=== PATIENT | female | born 1990 | race Caucasian/White ===

== ENCOUNTER 2017-08-17 23:57 | Inpatient (IN) ==
[~2017-08-17 23:57] MED LIST: BUTORPHANOL TARTRATE 2 MG/ML VIAL IV PRN; LIDOCAINE HCL 50 ML VIAL PERI PRN; ONDANSETRON HCL/PF 2 MG/ML VIAL IV PRN
[2017-08-18] MEDS ORDERED: OXYTOCIN/DEXTROSE 5%-WATER 30 UNITS/500 ML BAG IV ONE ×2 (00:01→14:39)
[2017-08-18 00:44] LABS: Hematocrit 30.8 % (37.0-47.0); Hemoglobin 10.3 gm/dL (12.5-16.0); Mean Cell Volume 89.5 fl (78-100); Mean Corpuscular Hemoglobin 29.9 pg (27-31); Mean Corpuscular Hgb Conc 33.4 g/dl (32-36); Neutrophil # 7.6 K/mm3 (1.3-6.0); Neutrophil % 70.7 % (42-75.0); Platelet Count 211 K/mm3 (150-450); Red Blood Count 3.44 M/mm3 (4.2-5.4); Red Cell Distribution Width 13.6 % (11.5-14.0); White Blood Count 10.7 K/mm3 (4.0-10.5)
[2017-08-18] MEDS: MISOPROSTOL 100 MCG TABLET VG PRN ×2 (01:08→06:35)
[2017-08-18] MEDS: RINGER'S SOLUTION,LACTATED 1,000 ML IV PRN ×2 (08:20→09:29)
[2017-08-18] MEDS ORDERED: ONDANSETRON HCL/PF 2 MG/ML VIAL IV PRN (08:37)
[2017-08-18] MEDS ORDERED: BUPIVACAINE HCL/0.9 % NACL/PF 250 ML EP PRN ×3 (08:37→09:22)
[2017-08-18] MEDS ORDERED: NALOXONE HCL 1 MG/1 ML SYRG IV PRN (08:37)
[2017-08-18] MEDS ORDERED: fentaNYL CITRATE/PF 50 MCG/ML AMPUL IT SCH (08:45)
--- NOTE | 2017-08-18 08:48 | PN ---
Subjective - Date and Time Seen Date: 08/18/17 Subjective Narrative: labor note 27 yo, CF, at 39.2 w, elective induction. GBS negative. cytotec for cervical ripening. cervix 1 cm/75/-2 at admission. first dose at 1:08 am. second dose at 3:30 am. patient appeared in a lot of pain. Contraction every 2-3 min. FHR: reassuring, 130s with accels and occasional variable (using the wireless monitoring system, Novii at this time). bedside u/s: cephalic Todd bulb inserted, easy to get into the cervix, but not easy to get through, patient is very uncomfortable, so Todd catheter removed. Plan: will get epidural. expectant and monitoring for now. Paola Kwon MD Objective - Abnormal Lab Findings Abnormal Lab Findings: Abnormal Lab Results 08/18/17 Range/Units 00:40 WBC 10.7 H (4.0-10.5) K/mm3 RBC 3.44 L (4.2-5.4) M/mm3 Hgb 10.3 L (12.5-16.0) gm/dL Hct 30.8 L (37.0-47.0) % MPV 11.0 H (6.0-9.5) fl Immature Gran % (Auto) 0.60 H (0.001-0.429) % Immature Gran # (Auto) 0.06 H (0.000-0.0310) K/mm3 Neutrophils # 7.6 H (1.3-6.0) K/mm3
[2017-08-18] MEDS ORDERED: BUPIVACAINE HCL/PF 30 ML VIAL EP SCH ×2 (09:15→09:30)
--- NOTE | 2017-08-18 09:52 | OR ---
Anesthesia Procedure Note - Anesthesia Procedure Note Date of Service: 08/18/17 Narrative: 08/18/17 09:51 ANESTHESIA PROCEDURE NOTE Date of Procedure: 08/17/2017. Time of procedure: 929. Performed by: Mann Mckeon CRNA Beer Merchant: None. Preprocedure diagnosis: Active labor. Post procedure diagnosis: Same. Procedure: Insertion of labor epidural. Indications: The patient is a 27 -year-old female in active labor requesting labor epidural for pain management. Findings: See below. Details of the procedure: The patient was placed in a sitting position. DuraPrep as well as Betadine swabs X3 was applied to the patient's back. Patient was then draped in a sterile fashion. Lidocaine 1% was infiltrated to the skin and subcutaneous tissues at the level of the L3-4 interspace. The epidural space was identified using a 18-gauge Tuohy needle with loss-of- resistance technique. Epidural catheter was inserted to a depth of 12 centimeters at skin. Negative test dose was elicited using 3 mL of 1.5% preservative-free lidocaine plus epinephrine 1 200,000. The epidural catheter was then taped and secured in place. A loading dose of 8 mL of 0.25% preservative-free bupivacaine was administered to the epidural catheter after negative aspiration for blood and CSF. EBL: Minimal. Fluids: N/A. Specimen: N/A. Post procedure condition: The patient tolerated the procedure well. No complications were noted. Thank you for this consultation. Mann Mckeon CRNA
[2017-08-18] MEDS ORDERED: BENZOCAINE/MENTHOL 81 SPRAY CAN TP PRN (14:39)
[2017-08-18] MEDS ORDERED: HYDROCORTISONE 30 APPL TUBE TP PRN (14:39)
[2017-08-18] MEDS ORDERED: SENNOSIDES 8.6 MG TABLET PO PRN (14:39)
[2017-08-18] MEDS ORDERED: BISACODYL 10 MG SUPP.RECT RC PRN (14:39)
[2017-08-18] MEDS ORDERED: diphenhydrAMINE HCL 25 MG CAPSULE PO PRN (14:39)
[2017-08-18] MEDS ORDERED: GLYCERIN/WITCH HAZEL LEAF 40 APPL BOX TP PRN (14:39)
[2017-08-18] MEDS ORDERED: HYDROcodone/ACETAMINOPHEN 1 EACH TABLET PO PRN (14:39)
--- NOTE | 2017-08-18 14:39 | OR ---
Operative Report - Dictated Report Narrative: Spontaneous Vaginal Delivery Note: 27 yo, CF, at 39.2 weeks, admitted for elective induction, dilated to 1 cm, 75% and -2 at admission. GBS was negative. Received Cytotec per vagina x 2 doses and augmented with pitocin. Received epidural for pain. SROM prior to delivery, time of SROM unknown. Progressed to complete without complications. Perineum cleaned with betadine. Pushed with contractions and descent. Head delivered in TRUMAN over the perineum. No nuchal cord noted. The anterior shoulder delivered, followed by the posterior shoulder and the rest of the baby without difficulty. Baby cried at perineum. Baby placed on maternal abdomen for drying and care by the nursing. Cord was clamped at one minute of life and cut by the father of baby. Cord blood was obtained. Placenta delivered intact with 3 vessel cord. Pitocin drip started after placenta delivered. Exam of the perineum, vaginal and cervix revealed small bilateral periurethral tears only. No repair needed. Fundus was massaged and firm. Bleeding was small. Mother and baby tolerated the delivery well. EBL 150 ml. Infant: male, 3580grams, 7 lbs and 14.2 oz. 9/9. Time of delivery: 14:15. Paola Kwon MD History for Definition: * The number of deliveries resulting in a live the patient experienced prior to current hospitalization * The previous delivery of live twins or any live multiple gestation is considered one live event. *If primagravida or nulliparous is documented select zero for the number of previous live births. Live Events: 1
[2017-08-18] MEDS: IBUPROFEN 800 MG TABLET PO PRN ×2 (17:38→23:45)
[2017-08-18] MEDS: DOCUSATE SODIUM 100 MG CAPSULE PO SCH (21:57)
[2017-08-19] MEDS: DOCUSATE SODIUM 100 MG CAPSULE PO SCH ×3 (07:29→20:46)
[2017-08-19] MEDS: IBUPROFEN 800 MG TABLET PO PRN ×3 (07:29→19:06)
--- NOTE | 2017-08-19 17:31 | PN ---
Subjective - Date and Time Seen Date: 08/19/17 Subjective Narrative: day 1, s/p vaginal delivery. no complaints. . normal lochia. ambulating well. Objective - Vitals Vitals: Last Vital Signs Temp 36.4 C L 08/19/17 08:21 Pulse 80 08/19/17 13:00 Resp 16 08/19/17 13:00 BP 128/78 08/19/17 13:00 Pulse Ox 98 08/19/17 13:00 - Exam Constitutional: Present: Alert, Oriented x3, Cooperative Respiratory: Present: no respiratory distress Cardiovascular/Chest: Present: normal peripheral pulses Abdomen: Present: soft, nontender, nondistended, other - fundus firm, non-tender , 1 finger below umbilicus Extremity: Present: normal range of motion, no pedal edema, no calf tenderness Skin Exam: Present: normal color, warm/dry, no cyanosis Appearance: Present: appropriate appearance Eye contact: Present: cooperative, good eye contact, normal speech Cauti Physician Documentation - Urinary Catheter Management Urethral (Todd) Date of Insertion: 08/18/17 Time of Insertion: 09:55 Assessment/Plan Plan Narrative: A: day 1, s/p , stable and well. Plan: routine care. ambulation encouraged. Paola Kwon MD
[2017-08-20] MEDS: IBUPROFEN 800 MG TABLET PO PRN ×2 (01:18→08:07)
[2017-08-20] MEDS: DOCUSATE SODIUM 100 MG CAPSULE PO SCH (08:07)
[2017-08-20 09:53] VITALS: BP 135/86
--- NOTE | 2017-08-20 14:33 | PN ---
Subjective - Date and Time Seen Date: 08/20/17 Subjective Narrative: day 2, s/p doing well. noted some leg swelling. no headache or blurry vision. BP normal. well. small lochia. Objective - Vitals Vitals: Last Vital Signs Temp 36.4 C L 08/20/17 08:00 Pulse 75 08/20/17 08:00 Resp 20 08/20/17 08:00 BP 135/86 08/20/17 08:00 Pulse Ox 98 08/20/17 08:00 - Exam Constitutional: Present: Alert, Oriented x3, Cooperative Respiratory: Present: no respiratory distress Cardiovascular/Chest: Present: normal peripheral pulses Abdomen: Present: soft, nontender, nondistended, other - fundus firm and below unbilicus Extremity: Present: normal range of motion, no calf tenderness, lower extremity edema - 1+ bilaterally, pedal edema - trace Skin Exam: Present: normal color, warm/dry, no cyanosis Appearance: Present: appropriate appearance Eye contact: Present: cooperative, good eye contact, normal speech Cauti Physician Documentation - Urinary Catheter Management Urethral (Todd) Date of Insertion: 08/18/17 Time of Insertion: 09:55 Assessment/Plan Plan Narrative: A: PPD#2, s/p , stable with mild low extremity edema. Plan: preeclampsia precautions given. counseled ambulation and leg elevation. discharge home today. Paola Kwon MD
== END 2017-08-20 13:00 | disposition home or self-care (01) | DRG 775 ==
LOC: OB 23:57
PROVIDERS: ADMIT Obstetrics & Gynecology; ATTEND Obstetrics & Gynecology
DX: Z37.0 Single live birth; O80 Encounter for full-term uncomplicated delivery; Z3A.39 39 weeks gestation of pregnancy
CPT/HCPCS: 36415; 59025; 85025; 86850; 86900; J2405

== ENCOUNTER 2018-09-09 11:34 | Inpatient (IN) ==
[2018-09-09] MEDS ORDERED: METOCLOPRAMIDE HCL 5 MG/ML VIAL IV ONE (12:14)
[2018-09-09] MEDS ORDERED: ONDANSETRON HCL/PF 2 MG/ML VIAL IV PRN ×2 (12:28→14:30)
[2018-09-09] MEDS ORDERED: DEXTROSE 5%-LACTATED RINGERS 1,000 ML IV PRN (12:28)
[2018-09-09 12:51] LABS: Hematocrit 31.5 % (37.0-47.0); Hemoglobin 10.2 gm/dL (12.5-16.0); Mean Cell Volume 88.2 fl (78-100); Mean Corpuscular Hemoglobin 28.6 pg (27-31); Mean Corpuscular Hgb Conc 32.4 g/dl (32-36); Mean Platelet Volume 11.1 fl (8-12.5); Neutrophil # 6.1 K/mm3 (1.3-6.0); Neutrophil % 74.1 % (42-75.0); Platelet Count 220 K/mm3 (150-450); Red Blood Count 3.57 M/mm3 (4.2-5.4); Red Cell Distribution Width 13.2 % (11.5-14.0); White Blood Count 8.2 K/mm3 (4.0-10.5)
[2018-09-09] MEDS: METOCLOPRAMIDE HCL 5 MG/ML VIAL IV PRN ×2 (12:52→13:11)
[2018-09-09 12:55] LABS: Albumin * 2.3 gm/dl (3.4-5.0); Anion Gap 14.5 mmol/L (6.8-13.8); BUN/Creatinine Ratio 7.8 (9.0-21.6); Bilirubin, Total 0.3 mg/dL (0.0-1.1); Ca. Corrected For Albumin 9.5 mg/dL (8.4-10.2); Calcium * 8.5 mg/dL (7.9-10.9); Carbon Dioxide 23.2 mmol/L (24-32.6); Potassium 3.7 mmol/L (3.4-4.6); Total Protein 6.1 gm/dL (6.2-8.2)
[2018-09-09 12:56] LABS: Random Urine Total Protein 19.1 mg/dL (0-12)
[2018-09-09 13:00] LABS: Cocaine Ur Negative (NEGATIVE); Urine Barbiturate Negative (NEGATIVE); Urine Benzodiazepines Negative (NEGATIVE); Urine Opiates Negative (NEGATIVE); Urine PCP Negative (NEGATIVE); Urine THC Negative (NEGATIVE)
[2018-09-09] MEDS ORDERED: diphenhydrAMINE HCL 50 MG/ML VIAL IV ONE (13:00)
[2018-09-09] MEDS ORDERED: OXYTOCIN/DEXTROSE 5%-WATER 30 UNITS/500 ML BAG IV ONE ×2 (13:48→18:35)
[2018-09-09] MEDS ORDERED: RINGER'S SOLUTION,LACTATED 1,000 ML IV PRN (13:48)
[2018-09-09] MEDS ORDERED: RINGER'S SOLUTION,LACTATED 1,000 ML IV ONE (13:48)
--- NOTE | 2018-09-09 13:52 | HP ---
Chief Complaint - Chief Complaint Date of Service: 09/09/18 Time of Service: 13:50 Chief Complaint: LEÓN and elevated BPs History of Present Illness: 28 yo at 38 2/7 wks presents to L&D complaining of LEÓN unrelieved with tylenol and rest and elevated BPs at home. She denies visual changes or epigastric pain. This complicated by anemia, short interval between pregnancies, h/o LEEP, h/o GHTN. Rh positive Rubella immune GBS negative. Medical History (Updated 09/09/18 @ 13:52 by Daniel Nicolas DO) Constipation Onset Date: ~2014 Endometriosis Onset Date: Unknown [place] teeth extracted Abnormal Pap smear of cervix Onset Date: ~2012; had colpo and LEEP, unsure of dx Acute non-recurrent frontal sinusitis Onset Date: ~03/06/17 Cholesteatoma Onset Date: Unknown age 10 5th grade Gestational hypertension Onset Date: Unknown Impacted cerumen of left ear Onset Date: ~03/06/17 Otitis media Onset Date: Unknown Ovarian cyst Onset Date: Unknown Surgical History: Surgical History (Updated 09/09/18 @ 13:52 by Daniel Nicolas DO) Hx of tonsillectomy H/O dilation and curettage Onset Date: ~2011 [facility] H/O myringoplasty History of appendectomy Onset Date: ~2010 History of colposcopy Onset Date: ~2012 History of ear surgery Onset Date: Unknown 5th grade left ear leetz/leep Onset Date: ~2012 Family History: Family History (Updated 01/20/18 @ 14:02 by Sienna Lainez RN) Mother Alive and well Father Diabetes Hypertension Social History: Preferred Language Czech Smoking Status Never smoker (Last Updated 09/08/18 @ 15:32 by Paola Kwon MD) No Social History Section defined Review Of Systems (GEN) - Review of Systems Generalized/Overall Review: Present: No Symptoms Reported EENTM: Present: No Symptoms Reported Respiratory: Present: No Symptoms Reported Cardiac: Present: No Symptoms Reported Abdominal: Present: Abdominal Pain - cramping Genitourinary: Present: No Symptoms Reported Musculoskeletal: Present: No Symptoms Reported Neurological: Present: Headache Skin: Present: No Symptoms Reported Endocrine: Present: No Symptoms Reported Immunizations: IMMUNIZATION HX Immunizations Up to Date Yes Allergies/Adverse Reactions: Allergies Allergy/AdvReac Type Severity Reaction Status Date / Time No Known Allergies Allergy Verified 09/09/18 12:07 Home Medications: HOME MEDICATIONS Vits96/Iron Fum/Folic [ S] 1 tab PO DAILY 08/18/17 [Last Taken 09/07/18 06:00] Acetaminophen [Tylenol] 1,000 mg PO PRN PRN 09/07/18 [Last Taken 09/09/18 10:00] Exam - Exam Vital Signs: Vital Signs - Last Taken Temp 36.2 C 09/09/18 12:05 Pulse 98 09/09/18 12:40 Resp 20 09/09/18 12:40 BP 126/79 09/09/18 12:40 Pulse Ox 96 09/09/18 12:05 Constitutional: Present: Alert, Oriented x3, Cooperative, Mild distress ENT Exam: Present: hearing grossly normal Breasts: Present: Exam deferred Respiratory: Present: lungs clear, no respiratory distress Cardiovascular/Chest: Present: normal peripheral pulses, regular rate, rhythm, no edema Abdomen: Present: soft, nontender, no rebound tenderness, other - gravid. Absent: guarding /Rectal: Present: Other - 5-6/90/-2 Extremity: Present: no pedal edema, no calf tenderness Neurologic: Present: alert, normal mood/affect, oriented x 3, other - DTR 2/4 b/l LE, no clonus Appearance: Present: appropriate appearance, appropriate insight Eye contact: Present: cooperative, good eye contact Thoughts: Present: normal thought pattern Diagnostic Studies: Abnormal Lab Results 09/09/18 09/09/18 09/09/18 Range/Units 12:30 12:30 12:30 RBC 3.57 L (4.2-5.4) M/mm3 Hgb 10.2 L (12.5-16.0) gm/dL Hct 31.5 L (37.0-47.0) % Immature Gran % (Auto) 0.60 H (0.001-0.429) % Immature Gran # (Auto) 0.05 H (0.000-0.0310) K/mm3 Lymphocytes % 14.7 L (20-51) % Neutrophils # 6.1 H (1.3-6.0) K/mm3 Lymphocytes # 1.20 L (1.5-3.5) k/mm3 Chloride 107 H (97-106) mmol/L Carbon Dioxide 23.2 L (24-32.6) mmol/L Anion Gap 14.5 H (6.8-13.8) mmol/L BUN/Creatinine Ratio 7.8 L (9.0-21.6) ALT 16 L (19-67) U/L Total Protein 6.1 L (6.2-8.2) gm/dL Albumin 2.3 L (3.4-5.0) gm/dl U Random Total Protein 19.1 H (0-12) mg/dL Laboratory Results WBC 8.2 K/mm3 (4.0-10.5) 09/09/18 12:30 RBC 3.57 M/mm3 (4.2-5.4) L 09/09/18 12:30 Hgb 10.2 gm/dL (12.5-16.0) L 09/09/18 12:30 Hct 31.5 % (37.0-47.0) L 09/09/18 12:30 MCV 88.2 fl (78-100) 09/09/18 12:30 MCH 28.6 pg (27-31) 09/09/18 12:30 MCHC 32.4 g/dl (32-36) 09/09/18 12:30 RDW 13.2 % (11.5-14.0) 09/09/18 12:30 Plt Count 220 K/mm3 (150-450) 09/09/18 12:30 MPV 11.1 fl (8-12.5) 09/09/18 12:30 Immature Gran % (Auto) 0.60 % (0.001-0.429) H 09/09/18 12:30 Immature Gran # (Auto) 0.05 K/mm3 (0.000-0.0310) H 09/09/18 12:30 74.1 % (42-75.0) 09/09/18 12:30 14.7 % (20-51) L 09/09/18 12:30 8.7 % (0.0-9) 09/09/18 12:30 1.7 % (0.0-3.0) 09/09/18 12:30 0.2 % (0.0-1.0) 09/09/18 12:30 Nucleated RBC % 0.0 k/mm3 (0-1) 09/09/18 12:30 6.1 K/mm3 (1.3-6.0) H 09/09/18 12:30 1.20 k/mm3 (1.5-3.5) L 09/09/18 12:30 0.7 k/mm3 (0.0-1.0) 09/09/18 12:30 0.1 k/mm3 (0.0-0.7) 09/09/18 12:30 Absolute Basophils 0.0 k/mm3 (0.0-0.1) 09/09/18 12:30 Sodium 141 mmol/L (132-142) 09/09/18 12:30 141 mmol/L (130-142) 09/09/18 12:30 Potassium 3.7 mmol/L (3.4-4.6) 09/09/18 12:30 Chloride 107 mmol/L (97-106) H 09/09/18 12:30 Carbon Dioxide 23.2 mmol/L (24-32.6) L 09/09/18 12:30 14.5 mmol/L (6.8-13.8) H 09/09/18 12:30 BUN 6 mg/dL (3-23) 09/09/18 12:30 0.77 mg/dL (0.4-1.4) 09/09/18 12:30 Est GFR (Non-Af Amer) 94 mL/min (60-130) 09/09/18 12:30 7.8 (9.0-21.6) L 09/09/18 12:30 106 mg/dL (70-110) 09/09/18 12:30 Calcium 8.5 mg/dL (7.9-10.9) 09/09/18 12:30 Calcium Adj for Albumin 9.5 mg/dL (8.4-10.2) 09/09/18 12:30 0.3 mg/dL (0.0-1.1) 09/09/18 12:30 AST 18 U/L (0-48) 09/09/18 12:30 ALT 16 U/L (19-67) L 09/09/18 12:30 160 U/L (50-170) 09/09/18 12:30 6.1 gm/dL (6.2-8.2) L 09/09/18 12:30 2.3 gm/dl (3.4-5.0) L 09/09/18 12:30 Ur Random Creatinine 128.5 mg/dL (60-200) 09/09/18 12:30 U Random Total Protein 19.1 mg/dL (0-12) H 09/09/18 12:30 U [place] Prot/Creat Ratio 149 mg/gm (0-199) 09/09/18 12:30 Negative (NEGATIVE) 09/09/18 12:30 Negative (NEGATIVE) 09/09/18 12:30 Ur Phencyclidine Scrn Negative (NEGATIVE) 09/09/18 12:30 Urine Amphetamine Negative (NEGATIVE) 09/09/18 12:30 U Benzodiazepines Scrn Negative (NEGATIVE) 09/09/18 12:30 Negative (NEGATIVE) 09/09/18 12:30 Negative (NEGATIVE) 09/09/18 12:30 Assessment/Plan - Assessment/Plan (1) Labor established Assessment: Admit for routine management of labor. Epidural PRN. Problem: Acute (2) Headache Assessment: Resolved with one dose of Benadryl and 2 doses of Reglan. Problem: Resolved Qualifiers: Headache chronicity pattern: acute headache Intractability: intractable (3) History of gestational hypertension Problem: Chronic (4) History of loop electrical excision procedure (LEEP) Problem: Chronic
[2018-09-09] MEDS ORDERED: fentaNYL CITRATE/PF 50 MCG/ML AMPUL IT SCH (14:30)
[2018-09-09] MEDS ORDERED: BUPIVACAINE HCL/0.9 % NACL/PF 250 ML EP PRN (14:30)
[2018-09-09] MEDS ORDERED: NALOXONE HCL 1 MG/1 ML SYRG IV PRN (14:30)
[2018-09-09] MEDS ORDERED: LIDOCAINE HCL/EPINEPHRINE 20 ML VIAL ONE (14:56)
--- NOTE | 2018-09-09 15:13 | PN ---
Progess Note - Interim Date: 09/09/18 Time: 14:30 Narrative: 09/09/18 15:11 Patient desires epidural Vital signs stable. FHT:150 baseline, reassuring Contractions q 2-4 min Cervix: 8/90/-1 AROM-scant blood tinged Impression: Intrauterine at 38-2/7 weeks in labor Plan: Epidural requested
--- NOTE | 2018-09-09 15:28 | ANES ---
Anesthesia Pre Procedure Eval Vitals/Labs: Last Vital Signs Temp 36.2 C 09/09/18 12:05 Pulse 98 09/09/18 12:40 Resp 20 09/09/18 12:40 BP 126/79 09/09/18 12:40 Pulse Ox 96 09/09/18 12:05 HOME MEDICATIONS RX: Vits96/Iron Fum/Folic [ S] 1 tab PO DAILY 08/18/17 [Last Taken 09/07/18 06:00] Acetaminophen [Tylenol] 1,000 mg PO PRN PRN 09/07/18 [Last Taken 09/09/18 10:00] Allergies/Adverse Reactions: Allergies Allergy/AdvReac Type Severity Reaction Status Date / Time No Known Allergies Allergy Verified 09/09/18 12:07 - Planned Procedure Planned Procedure: HEADACHE, ELEVATED B/P Medication List Reviewed:: Yes Allergies Verified: Yes Medical History (Updated 09/09/18 @ 14:13 by Daniel Nicolas DO) Constipation Onset Date: ~2014 Endometriosis Onset Date: Unknown [place] teeth extracted Abnormal Pap smear of cervix Onset Date: ~2012; had colpo and LEEP, unsure of dx Acute non-recurrent frontal sinusitis Onset Date: ~03/06/17 Cholesteatoma Onset Date: Unknown age 10 5th grade Gestational hypertension Onset Date: Unknown Impacted cerumen of left ear Onset Date: ~03/06/17 Otitis media Onset Date: Unknown Ovarian cyst Onset Date: Unknown Surgical History (Updated 09/09/18 @ 14:13 by Daniel Nicolas DO) Hx of tonsillectomy H/O dilation and curettage Onset Date: ~2011 [place] H/O myringoplasty History of appendectomy Onset Date: ~2010 History of colposcopy Onset Date: ~2012 History of ear surgery Onset Date: Unknown 5th grade left ear leetz/leep Onset Date: ~2012 Family History (Updated 01/20/18 @ 14:02 by Sienna Lainez RN) Mother Alive and well Father Diabetes Hypertension - Family Anesthesia History Family History:: no untoward family reactions to anesthesia - Airway/Neck/Teeth Within Normal Limits:: Yes Teeth Condition: intact Neck Exam: full range of motion Mallampatti Score: 2 Thyromental (T-M) distance: > 6 cm Mandibulo Hyoid distance: > 3 cm - Respiratory Respiratory Physical: lungs clear Sleep Apnea currently treated: No Sleep Apnea by current assessment: No - Cardiovascular Tolerate Activity: Good Heart Sounds: S1 & S2, Regular - Anesthesia Assessment and Plan ASA Class: PS, II, E Anesthesia Type Plan: Epidural Planned difficult intubation/equipment available: No
--- NOTE | 2018-09-09 15:29 | ANES ---
Post Anesthesia Assessment - Vital Signs Vitals: Last Vital Signs Temp 36.2 C 09/09/18 12:05 Pulse 98 09/09/18 12:40 Resp 20 09/09/18 12:40 BP 126/79 09/09/18 12:40 Pulse Ox 96 09/09/18 12:05 Airway Patency: Normal - Mental Status Level Of Consciousness: Awake - Pain Level Pain Score: 2 - N/V Assessment Nausea/Vomiting Presence: None Dehydration:: No
--- NOTE | 2018-09-09 15:29 | ANES ---
Post Anesthesia Discharge - Transfer of Care Transfer of Care handoff given to nurse: Yes - Anesthesia Post Op Note Anesthesia Post Op Note: Care transferred to OB RN
--- NOTE | 2018-09-09 15:30 | ANES ---
Anesthesia Procedure Note Procedure Note: ANESTHESIA PROCEDURE NOTE Date of Procedure: 09/09/2018 Time of procedure: 1515. Performed by: Vin Baumann CRNA Field Counsel: None. Preprocedure diagnosis: Active labor. Post procedure diagnosis: Same. Procedure: Insertion of labor epidural. Indications: The patient is a 28-year-old multigravida female in active labor requesting labor epidural for pain management. Findings: See below. Details of the procedure: The patient was placed in a sitting position. Back was prepped with DuraPrep. Patient was then draped in a sterile fashion. Lidocaine 1% was infiltrated to the skin and subcutaneous tissues at the level of the L3 4 interspace. The epidural space was identified using a 18-gauge Tuohy needle with [id number] technique. 20 mcg fentanyl was given intrathecally using a 27 ga. spinal needle. Epidural catheter was inserted without difficulty. Negative test dose was elicited using 3 mL of 2% preservative-free lidocaine plus epinephrine 1 200,000. The epidural catheter was then taped and secured in place. EBL: Minimal. Fluids: N/A. Specimen: N/A. Post procedure condition: The patient tolerated the procedure well. No complications were noted. Thank you for this consultation. [place] CRNA
--- NOTE | 2018-09-09 18:33 | OR ---
Operative Report - Dictated Report Narrative: Spontaneous vaginal delivery of viable male at 1818 on 09/09/2018 with Apgars 9 and 9, weighing 3935 g and TRUMAN position. Infant crying on mother's abdomen. Cord clamping delayed approximately 1 minute Placenta delivered complete, intact, with three vessel cord Estimated blood loss: less than 50 ml Anesthesia: epidural Lacerations: None History for MU Definition: * The number of deliveries resulting in a live the patient experienced prior to current hospitalization * The previous delivery of live twins or any live multiple gestation is considered one live event. *If primagravida or nulliparous is documented select zero for the number of previous live births. Live Events: 2
[2018-09-09] MEDS ORDERED: BENZOCAINE/MENTHOL 81 SPRAY CAN TP PRN (18:35)
[2018-09-09] MEDS ORDERED: oxyCODONE HCL/ACETAMINOPHEN 1 TAB TABLET PO PRN (18:35)
[2018-09-09] MEDS ORDERED: SENNOSIDES 8.6 MG TABLET PO PRN (18:35)
[2018-09-09] MEDS ORDERED: HYDROCORTISONE 30 APPL TUBE TP PRN (18:35)
[2018-09-09] MEDS ORDERED: GLYCERIN/WITCH HAZEL LEAF 40 APPL BOX TP PRN (18:35)
[2018-09-09] MEDS ORDERED: BISACODYL 10 MG SUPP.RECT RC PRN (18:35)
[2018-09-09] MEDS: DOCUSATE SODIUM 100 MG CAPSULE PO SCH (20:50)
[2018-09-09] MEDS: IBUPROFEN 800 MG TABLET PO PRN (20:50)
[2018-09-09] MEDS: oxyCODONE HCL/ACETAMINOPHEN 1 TAB TABLET PO PRN (20:50)
[2018-09-10] MEDS: IBUPROFEN 800 MG TABLET PO PRN ×3 (04:18→20:53)
[2018-09-10] MEDS: PRENATAL VITS96/IRON FUM/FOLIC 1 TAB TABLET PO SCH (10:06)
[2018-09-10] MEDS: DOCUSATE SODIUM 100 MG CAPSULE PO SCH ×2 (10:06→20:54)
[2018-09-10] MEDS: guaiFENesin 100 MG/5 ML BTL PO PRN ×2 (16:24→20:52)
--- NOTE | 2018-09-10 17:37 | PN ---
Subjective - Date and Time Seen Date: 09/10/18 Time: 17:36 Objective - Vitals Vitals: Last Vital Signs Temp 36.9 C 09/10/18 12:40 Pulse 76 09/10/18 12:40 Resp 16 09/10/18 12:40 BP 131/83 09/10/18 12:40 Pulse Ox 97 09/10/18 12:40 Patient denies complaints. Lochia wnl Abdomen - soft, nontender Uterus - firm, at umbilicus - 1 No calf tenderness Impression: day #1 - s/p spontaneous vaginal delivery. Plan: Continue routine care Cauti Physician Documentation - Urinary Catheter Management Urethral (Todd) Date of Insertion: 09/09/18 Time of Insertion: 15:45 Assessment/Plan - Problems/Diagnosis (1) Labor established Problem: Acute (2) Headache Problem: Resolved Qualifiers: Headache chronicity pattern: acute headache Intractability: intractable (3) History of gestational hypertension Problem: Chronic (4) History of loop electrical excision procedure (LEEP) Problem: Chronic
[2018-09-11] MEDS: guaiFENesin 100 MG/5 ML BTL PO PRN ×2 (01:42→09:55)
[2018-09-11] MEDS: IBUPROFEN 800 MG TABLET PO PRN (08:00)
[2018-09-11] MEDS: oxyCODONE HCL/ACETAMINOPHEN 1 TAB TABLET PO PRN (08:00)
[2018-09-11] MEDS: PRENATAL VITS96/IRON FUM/FOLIC 1 TAB TABLET PO SCH (08:00)
[2018-09-11] MEDS: DOCUSATE SODIUM 100 MG CAPSULE PO SCH (08:01)
--- NOTE | 2018-09-11 12:11 | PN ---
Subjective - Date and Time Seen Date: 09/11/18 Time: 12:11 Objective - Vitals Vitals: Last Vital Signs Temp 36.4 C 09/11/18 09:00 Pulse 89 09/11/18 09:00 Resp 18 09/11/18 09:00 BP 133/82 09/11/18 09:00 Pulse Ox 95 09/11/18 09:00 Patient denies complaints. Lochia wnl Abdomen - soft, nontender Uterus - firm, at umbilicus - 2 No calf tenderness Impression: day #2 - s/p spontaneous vaginal delivery. Plan: Routine discharge instructions Cauti Physician Documentation - Urinary Catheter Management Urethral (Todd) Date of Insertion: 09/09/18 Time of Insertion: 15:45 Assessment/Plan - Problems/Diagnosis (1) Labor established Problem: Acute (2) Headache Problem: Resolved Qualifiers: Headache chronicity pattern: acute headache Intractability: intractable (3) History of gestational hypertension Problem: Chronic (4) History of loop electrical excision procedure (LEEP) Problem: Chronic
[2018-09-11 13:53] VITALS: BP 129/84
== END 2018-09-11 13:50 | disposition home or self-care (01) | DRG 807 ==
LOC: OBCLINIC 11:34 → OB 13:27
PROVIDERS: ADMIT Obstetrics & Gynecology; ATTEND Obstetrics & Gynecology
CPT/HCPCS: 36415; 59025; 80053; 80307; 82570; 84155; 84156; 85025